=== PATIENT | female | born 1955 | race Caucasian/White ===

== ENCOUNTER 2021-05-18 22:13 | Emergency (ER) | payer MEDICARE, OTHER ==
--- NOTE | 2021-05-18 22:36 | EDM.PDOC ---
ED HPI GENERAL MEDICAL PROBLEM - General Chief Complaint: General Stated Complaint: L shoulder injury Time Seen by Provider: 05/18/21 22:36 Source of Information: Reports: Patient - History of Present Illness INITIAL COMMENTS - FREE TEXT/NARRATIVE: Kirsten, 65-year-old female, presents per private vehicle with left arm shoulder pain. Stated she came home today after be gone for 2 days and has a new puppy that is 6 months old. Dog was excited went between her legs causing her to trip and fall landing on her left arm. Denies any pain to the wrist hand forearm or elbow but has pain to the proximal end of the humerus and going into her shoulder. Denies any other injury other than her glasses put some pressure on the bridge of her nose but there is no laceration or injury noted. Is been in good general health was recently started on diclofenac for osteoarthritis as well as on blood pressure medication. Otherwise she is in overall reasonable health for age. She has had no Covid exposures or risks. 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 Onset: Today, Sudden Duration: Minutes:, Getting Worse Location: Reports: Upper Extremity, Left Left Arm Pain Score (Numeric/FACES): 6 - Related Data Allergies Allergy/AdvReac Type Severity Reaction Status Date / Time No Known Drug Allergies Allergy Cannot Verified 05/18/21 22:35 Remember Home Meds: Home Meds Cider Vinegar [Apple Cider Vinegar] 300 mg PO DAILY 05/18/21 [History] Diclofenac Sodium/Misoprostol [Diclofenac-Misoprost 75-0.2 Tb] 1 tab PO BID 05/18/21 [History] Hydrocodone/Acetaminophen [HYDROcodone-Acetaminophen 5-325 MG] 1 each PO Q4HWA 5 Days #24 tab 05/18/21 [Rx] lisinopriL [Lisinopril] 10 mg PO DAILY 05/18/21 [History] Past Medical History HEENT History: Reports: Impaired Vision Cardiovascular History: Reports: High Cholesterol, Hypertension Respiratory History: Reports: None Gastrointestinal History: Reports: None Genitourinary History: Reports: None 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: Musculoskeletal History: Reports: Arthritis Neurological History: Reports: None Psychiatric History: Reports: None Endocrine/Metabolic History: Reports: None Oncologic (Cancer) History: Reports: None Dermatologic History: Reports: None - Past Imaging History Past Imaging History: Reports: Xray Social & Family History - Family History Family Medical History: No Pertinent Family History - Tobacco Use Tobacco Use Status *Q: Current Every Day Tobacco User - Alcohol Use Alcohol Use History: No Alcohol Use in Last Twelve Months: No ED ROS GENERAL - Review of Systems Review Of Systems: Comprehensive ROS is negative, except as noted in HPI. ED EXAM, GENERAL - Physical Exam Exam: See Below Free Text/Narrative:: Alert, oriented in mild painful distress. HEENT is negative discharge or deformity there is a mild pressure point on the bridge of her nose from her glasses where the put pressure as she fell. No laceration is noted. [place] moist mucous membranes. Neck is soft supple no lymphadenopathy no tenderness. There is no tenderness to the right upper extremity nor shoulder. With tenderness to the proximal humerus on the left with no shoulder pain. Thorax is clear with no wheezes no crackles. Cardiac's regular no murmur. No deficit of complaint to the lower extremities. ED GENERAL MEDICAL PROCEDURES - Splinting Left Upper Extremity Splint Site: Left arm forearm Pre-procedure NV status: Normal Post-procedure NV status: Normal Splint Type: Custom Splint Material: Fiberglass Splint Design: Sling Applied & Form Fitted By: Provider Provider Post-Splint Application NV Check: NV Status Normal Complications: No Progress/Comments: Humerus and forearm were well padded at which time fiberglass was placed immobilizing as high as we were able into the axilla to the wrist with the elbow at a 90 degree angle. She was then placed into a sling and appropriately adjusted. Was given instructions to not use her hand in any method. Course - Vital Signs Last Recorded V/S: Last Vital Signs Temp 96.5 F L 05/18/21 22:25 Pulse 90 05/18/21 22:25 Resp 20 05/18/21 22:25 BP 136/70 05/18/21 22:25 Pulse Ox 97 05/18/21 22:25 - Orders/Labs/Meds Orders: Active Orders 24 hr Category Date Time Status Humerus Lt [CR] Stat Exams 05/18/21 22:39 Ordered Shoulder Comp Lt [CR] Stat Exams 05/18/21 22:29 Stop Req Meds: Medications Discontinued Medications Generic Name Dose Route Start Last Admin Trade Name Freq PRN Reason Stop Dose Admin Hydrocodone Bitart/Acetaminophen 3 tab 05/18/21 23:39 05/18/21 23:43 Acetaminophen/Hydrocodone 325-10 Mg Tab PO 05/18/21 23:40 1 tab ONETIME ONE Administration - Radiology Interpretation Free Text/Narrative:: Fracture of the proximal third with mild displacement of the humerus on the left - Re-Assessments/Exams Free Text/Narrative Re-Assessment/Exam: 05/18/21 23:59 1 view shows a proximal third to midshaft oblique fracture. No further views are taken secondary of discomfort and first view showing a definitive fracture. Departure - Departure Time of Disposition: 23:45 Disposition: Home, Self-Care 01 Condition: Good Clinical Impression: Humerus shaft fracture - Discharge Information *PRESCRIPTION DRUG MONITORING PROGRAM REVIEWED*: Yes *COPY OF PRESCRIPTION DRUG MONITORING REPORT IN PATIENT DESIREE: Yes Prescriptions: Hydrocodone/Acetaminophen [HYDROcodone-Acetaminophen 5-325 MG] 1 each PO Q4HWA 5 Days #24 tab Instructions: Humerus Fracture Treated With Immobilization, [id number]-st-[id number] Referrals: Silvia Ortega PA-C [Primary Care Provider] - Chance Chicas MD [Ordering Only Provider] - Forms: ED Department Discharge Additional Instructions: We have splinted your humerus fracture and placed you in a sling. You need to keep the sling in place until you are rechecked this week at [facility] in [place]. Dr. Banegas was consulted [facility] and wants you to call tomorrow morning to get an appointment for anytime this week at your convenience. The number is [phone] You need to continue all your medications as directed. You may ice the area through the cast as it may help with swelling. You need to contact us, or your clinic if you develop numbness or tingling or change in sensation or cool to the touch fingers that do not improve with motion of the hand and fingers. Prescription for hydrocodone has been sent to [facility] for you to roll picker tomorrow. For jeremie you will be sent home with 3 hydrocodone's that will help with your discomfort. You might benefit from sleeping in a recliner or chair or elevated in bed to keep the cast hanging down keeping the bone alignment more prominent. Do not use your left hand to hold or pull on anything as it will disrupt the natural alignment that we are attempting to maintain with the cast. Contact your clinic if there is concerns during the week or contact or return to the emergency department if situation arises outside of clinic hours. Make sure to wear comfortable clothing easier to get on and off as the sling for some support must be to the forearm at all times allowing the cast to hang down maintaining alignment of the fracture. Sepsis Event Note (ED) - Focused Exam Vital Signs: Vital Signs Temp Pulse Resp BP Pulse Ox 05/18/21 22:25 96.5 F L 90 20 136/70 97 ED Communication - ED Communication Date/Time Date: 05/18/21 Time Called: 11:40 - Discussed Case With (1) Discussed Case With (1): Other Provider Person/s Notified (1): Dr Chance Chicas - Problem List & Annotations (1) Humerus shaft fracture SNOMED Code(s): 83927980 Code(s): S42.309A - UNSP FRACTURE OF SHAFT OF HUMERUS, UNSP ARM, INIT Status: Acute Qualifiers: Encounter type: initial encounter Fracture type: closed Fracture morphology: oblique Fracture alignment: displaced Laterality: left Qualifi ed Code(s): S42.332A - Displaced oblique fracture of shaft of humerus, left arm, initial encounter for closed fracture - Problem List Review Problem List Initiated/Reviewed/Updated: Yes - My Orders Last 24 Hours: My Active Orders 05/18/21 22:29 Shoulder Comp Lt [CR] Stat 05/18/21 22:39 Humerus Lt [CR] Stat - Assessment/Plan Last 24 Hours: My Active Orders 05/18/21 22:29 Shoulder Comp Lt [CR] Stat 05/18/21 22:39 Humerus Lt [CR] Stat Plan: We have splinted your humerus fracture and placed you in a sling. You need to keep the sling in place until you are rechecked this week at [facility]. Dr. Banegas was consulted tonight and wants you to call tomorrow morning to get an appointment for anytime this week at your convenience. The number is [phone] You need to continue all your medications as directed. You may ice the area through the cast as it may help with swelling. You need to contact us, or your clinic if you develop numbness or tingling or change in sensation or cool to the touch fingers that do not improve with motion of the hand and fingers. Prescription for hydrocodone has been sent to [facility] for you to roll picker tomorrow. For tonight you will be sent home with 3 hydrocodone's that will help with your discomfort. You might benefit from sleeping in a recliner or chair or elevated in bed to keep the cast hanging down keeping the bone alignment more prominent. Do not use your left hand to hold or pull on anything as it will disrupt the natural alignment that we are attempting to maintain with the cast. Contact your clinic if there is concerns during the week or contact or return to the emergency department if situation arises outside of clinic hours. Make sure to wear comfortable clothing easier to get on and off as the sling for some support must be to the forearm at all times allowing the cast to hang down maintaining alignment of the fracture.
[2021-05-18 22:48] VITALS: BP 136/70; PULSE 90
[2021-05-18] MEDS ORDERED: Acetaminophen/HYDROcodone 325-10 MG Tab PO ONE (23:39)
--- NOTE | 2021-05-19 07:52 | CR ---
[id number] RAD/RAD Humerus Left 2V Exam: RAD Humerus Left 2V Indication:FALL WITH PAIN Comparison: No prior imaging for comparison. Discussion/Impression: Single view demonstrates acute fracture of the proximal humeral metaphysis. Fracture demonstrates spiral morphology with displacement. Distal fragment is displaced a shaft width lateral. Fracture is mildly comminuted with 3 major fragments. Cecil Salinas MD 05/19/21 0759 Thank you for allowing us to participate in the care of your patient.
== END 2021-05-18 23:57 | disposition home or self-care (01) ==
LOC: KA.ED 22:13
DX: S42.332A Displaced oblique fracture of shaft of humerus, left arm, initial encounter for closed fracture (principal); I10 Essential (primary) hypertension; Z79.899 Other long term (current) drug therapy; Z72.0 Tobacco use; W01.0XXA Fall on same level from slipping, tripping and stumbling without subsequent striking against object, initial encounter; Y92.009 Unspecified place in unspecified non-institutional (private) residence as the place of occurrence of the external cause
CPT/HCPCS: 29105; 73060; 99283; A9270

== ENCOUNTER 2023-08-17 08:57 | Day surgery (SDC) | payer OTHER ==
[2023-08-17] MEDS ORDERED: Sodium Chloride 0.9% 10 ML Syringe FLUSH PRN (09:00)
[2023-08-17] MEDS: Lactated Ringers 1,000 ML IV SCH (09:27)
[2023-08-17] MEDS ORDERED: Propofol 200 MG/20 ML SDV ONE (09:30)
[2023-08-17] MEDS ORDERED: Midazolam 1 MG/ML 2 ML SDV ONE (09:30)
[2023-08-17 11:54] VITALS: BP 128/90; PULSE 77
== END 2023-08-17 12:18 | disposition home or self-care (01) ==
LOC: KA.SDS 08:57
PROVIDERS: ATTEND Family Medicine
DX: Z12.11 Encounter for screening for malignant neoplasm of colon (principal); K62.1 Rectal polyp; K64.8 Other hemorrhoids; F41.9 Anxiety disorder, unspecified; I10 Essential (primary) hypertension; E78.5 Hyperlipidemia, unspecified; M15.9 Polyosteoarthritis, unspecified; K52.9 Noninfective gastroenteritis and colitis, unspecified; G45.4 Transient global amnesia; I65.01 Occlusion and stenosis of right vertebral artery; M81.0 Age-related osteoporosis without current pathological fracture; F17.210 Nicotine dependence, cigarettes, uncomplicated; Z79.899 Other long term (current) drug therapy; Z88.8 Allergy status to other drugs, medicaments and biological substances
CPT/HCPCS: 00812; J2250; J2704; J7120